=== PATIENT | female | born 2000 | race Hispanic/Latino ===

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

== ENCOUNTER 2022-01-04 08:59 | Emergency (ER) | payer OTHER ==
[2022-01-04] MEDS ORDERED: Ketorolac Tromethamine 30 MG/ML VIAL ONE (10:51)
[2022-01-04] MEDS ORDERED: Acetaminophen 500 MG TAB ONE (10:51)
== END 2022-01-04 11:35 | disposition home or self-care (01) ==
LOC: CSHERS 08:59
DX: J06.9 Acute upper respiratory infection, unspecified (principal)
CPT/HCPCS: 96372; 99283; J1885

== ENCOUNTER 2022-07-18 18:54 | Emergency (ER) | payer OTHER | END 2022-07-18 19:53 | disposition home or self-care (01) | LOC: CSHERS 18:54 | DX: J02.9 Acute pharyngitis, unspecified (principal) | CPT/HCPCS: 99282 ==

== ENCOUNTER 2022-09-02 11:01 | Inpatient (IN) | payer OTHER ==
[2022-09-02] MEDS ORDERED: NS w/ Oxytocin 30 units 500 ML ONE (11:19)
[2022-09-02] MEDS ORDERED: Misoprostol 200 MCG TAB PR PRN (11:20)
[2022-09-02] MEDS ORDERED: Tranexamic Acid 1,000 MG/10 ML VIAL IVP PRN (11:20)
[2022-09-02] MEDS ORDERED: Carboprost 250 MCG/ML AMP IM PRN (11:20)
[2022-09-02] MEDS ORDERED: Ondansetron PF 4 MG/2 ML Vial IVP PRN ×2 (11:20→17:02)
[2022-09-02] MEDS ORDERED: Ibuprofen 800 MG TAB PO PRN (11:20)
[2022-09-02] MEDS ORDERED: Methylergonovine 0.2 MG/ML VIAL IM PRN ×2 (11:20→17:02)
[2022-09-02] MEDS ORDERED: hydrALAZINE 20 MG/ML VIAL SLOW IVP PRN ×2 (11:20→17:02)
[2022-09-02] MEDS ORDERED: Lidocaine 1% (PF) 30 ML VIAL SC PRN (11:20)
[2022-09-02] MEDS ORDERED: Promethazine HCl 25 MG/ML VIAL IM PRN ×2 (11:20→17:02)
[2022-09-02] MEDS ORDERED: Diphenoxylate HCl/Atropine Tablet PO PRN (11:20)
[2022-09-02] MEDS ORDERED: Lactated Ringer's 1,000 ML IV SCH (11:30)
[2022-09-02] MEDS ORDERED: NS w/ Oxytocin 30 units 500 ML IV SCH ×2 (11:30→17:02)
[2022-09-02 11:50] VITALS: BMI 28.3
[2022-09-02 13:07] LABS: Hemoglobin 8.4 g/dL (12.0-15.5); Mean Corpuscular HGB CONC 33.2 g/dL (32.0-36.0); Mean Corpuscular Hemoglobin 27.8 pg (27.0-33.0); Mean Corpuscular Volume 83.8 fl (81.6-98.3); Mean Platelet Volume 10.2 fl (7.4-10.4); Platelet Count 283 10x3/uL (150-450); RBC Distribution Width 14.2 % (11.5-14.5); Red Blood Cell (RBC) Count 3.02 10x6/uL (3.90-5.03)
[2022-09-02 13:47] LABS: HBSAg Index 0.17 S/CO (0-0.99); HIV (1/2) Antibody/Antigen Non-Reactive (NonReactive); HIV 1/2 INDEX 0.12 S/CO (<1.00); Hep B Surf Ag - L&D Non-Reactive S/CO (NonReactive)
[2022-09-02 13:49] LABS: Syphilis Antibody Nonreactive (Nonreactive); Syphilis Antibody Index 0.05 S/CO (<1.00 Non-Reactive)
[2022-09-02 14:38] LABS: Amphetamine Not Detected (NotDetected); Barbiturates Screen Not Detected (NotDetected); Benzodiazepine Screen Not Detected (NotDetected); Cocaine Metabolite Screen Not Detected (NotDetected); Methadone Not Detected (NotDetected); Methamphetamine Not Detected (NotDetected); Opiate Screen Not Detected (NotDetected); Oxycodone Screen Not Detected (NotDetected); Phencyclidine (PCP) Not Detected (NotDetected); THC/Cannabinoid Screen Not Detected (NotDetected); Tricyclic Screen Not Detected (NotDetected)
[2022-09-02] MEDS ORDERED: Bisacodyl 10 MG SUPP PR PRN (17:02)
[2022-09-02] MEDS ORDERED: Milk Of Magnesia 30 ML UDCUP PO PRN (17:02)
[2022-09-02] MEDS ORDERED: Misoprostol 200 MCG TAB VAG PRN (17:02)
[2022-09-02] MEDS ORDERED: Benzocaine-Menthol 82.5 ML CAN TOP PRN (17:02)
[2022-09-02] MEDS ORDERED: Lanolin Ointment 7 GM TUBE TOP PRN (17:02)
[2022-09-02] MEDS ORDERED: Boostrix 0.5 ML (Tdap) VIAL (>/=7 yrs of age) IM ONE (17:02)
[2022-09-02] MEDS ORDERED: diphenhydrAMINE 25 MG CAP PO PRN (17:02)
[2022-09-02 17:35] LABS: HBSAB Concentration Less than 8.00 mIU/mL; Hep B Surf AB Non-Reactive (NonReactive); Hep C IgG Ab Non-Reactive S/CO (NonReactive); Hep C Index 0.07 S/CO (0-0.79)
[2022-09-02 18:38] LABS: D-Dimer Test 2.25 mg/L FEU (0.19-0.50); PTT 26.5 sec (22.0-33.0); Prothrombin Time 10.3 sec (9.5-12.1)
[2022-09-02 19:07] LABS: Hemoglobin 6.8 g/dL (12.0-15.5)
[2022-09-02] MEDS: Ibuprofen 800 MG TAB PO SCH (21:07)
[2022-09-02] MEDS: Ferrous Sulfate 325 MG TAB PO SCH (21:07)
[2022-09-02] MEDS: Docusate 100 MG CAP PO SCH (21:07)
[2022-09-03 04:04] LABS: Hemoglobin 6.7 g/dL (12.0-15.5)
[2022-09-03] MEDS: Ibuprofen 800 MG TAB PO SCH ×4 (05:49→21:42)
[2022-09-03] MEDS: Docusate 100 MG CAP PO SCH ×2 (09:00→21:43)
[2022-09-03] MEDS: Ferrous Sulfate 325 MG TAB PO SCH ×2 (09:00→18:11)
[2022-09-03] MEDS: Prenatal Vitamin 1 TAB PO SCH (09:01)
[2022-09-03 12:00] LABS: Hemoglobin 7.1 g/dL (12.0-15.5); Mean Corpuscular Hemoglobin 27.7 pg (27.0-33.0); Mean Corpuscular Volume 81.6 fl (81.6-98.3); Mean Platelet Volume 9.8 fl (7.4-10.4); Platelet Count 236 10x3/uL (150-450); RBC Distribution Width 14.3 % (11.5-14.5); Red Blood Cell (RBC) Count 2.56 10x6/uL (3.90-5.03); White Blood Cell (WBC) Count 9.3 10x3/uL (3.5-10.5)
[2022-09-03] MEDS ORDERED: Measles/Mumps/Rubella 10 MCG/0.5 ML VIAL SC ONE (13:09)
[2022-09-04 03:20] LABS: Hemoglobin 6.8 g/dL (12.0-15.5); Mean Corpuscular HGB CONC 33.2 g/dL (32.0-36.0); Mean Corpuscular Hemoglobin 27.6 pg (27.0-33.0); Mean Corpuscular Volume 83.3 fl (81.6-98.3); Mean Platelet Volume 10.1 fl (7.4-10.4); Platelet Count 207 10x3/uL (150-450); RBC Distribution Width 14.7 % (11.5-14.5); Red Blood Cell (RBC) Count 2.46 10x6/uL (3.90-5.03); White Blood Cell (WBC) Count 9.1 10x3/uL (3.5-10.5)
[2022-09-04] MEDS: Ibuprofen 800 MG TAB PO SCH ×2 (08:22→15:00)
[2022-09-04] MEDS: Prenatal Vitamin 1 TAB PO SCH (09:50)
[2022-09-04] MEDS: Docusate 100 MG CAP PO SCH (09:50)
[2022-09-04] MEDS: Ferrous Sulfate 325 MG TAB PO SCH (09:50)
[2022-09-04 11:09] VITALS: BP 113/62; TEMP 98.1
[2022-09-04 15:16] LABS: Hemoglobin 9.2 g/dL (12.0-15.5); Mean Corpuscular HGB CONC 33.2 g/dL (32.0-36.0); Mean Corpuscular Hemoglobin 27.2 pg (27.0-33.0); Mean Platelet Volume 10.8 fl (7.4-10.4); Platelet Count 239 10x3/uL (150-450); RBC Distribution Width 15.4 % (11.5-14.5); Red Blood Cell (RBC) Count 3.38 10x6/uL (3.90-5.03); White Blood Cell (WBC) Count 11.1 10x3/uL (3.5-10.5)
== END 2022-09-04 16:40 | disposition home or self-care (01) | DRG 769 ==
LOC: CSHLD 11:01 → CSHPP 16:50
PROVIDERS: ADMIT Obstetrics & Gynecology; ATTEND Obstetrics & Gynecology
PROC: 10D17Z9 Manual Extraction of Products of Conception, Retained, Via Natural or Artificial Opening (ICD-10-PCS; principal; 2022-09-02)
PROC: 30233N1 Transfusion of Nonautologous Red Blood Cells into Peripheral Vein, Percutaneous Approach (ICD-10-PCS; 2022-09-02)
DX: O72.2 Delayed and secondary postpartum hemorrhage (principal); D50.0 Iron deficiency anemia secondary to blood loss (chronic); O90.81 Anemia of the puerperium
CPT/HCPCS: 36415; 36430; 80306; 85014; 85018; 85027; 85049; 85300; 85362; 85379; 85384; 85610; 85730; 86706; 86762; 86780; 86803; 86850; 86900; 86901; 87340; 87389; 88307; J2405; P9016

== ENCOUNTER 2023-05-25 00:59 | Emergency (ER) | payer OTHER, SELFPAY ==
[2023-05-25] MEDS ORDERED: Ondansetron PF 4 MG/2 ML Vial ONE (01:32)
[2023-05-25] MEDS ORDERED: Ketorolac Tromethamine 30 MG (1 mL) VIAL ONE (01:32)
[2023-05-25 01:39] LABS: #Basophils 0.1 10x3/uL (0.0-0.2); #Eosinphils 0.3 10x3/uL (0.0-0.5); #Monocytes 0.7 10x3/uL (0.0-1.1); #Neutrophils 5.9 10x3/uL (1.5-8.4); %Basophils 0.8 % (0.0-2.0); %Eosinophils 2.8 % (0.0-6.0); %Lymphocytes 30.9 % (18.0-47.0); %Monocytes 6.5 % (0.0-10.0); %Neutrophils 58.6 % (40.0-75.0); Hematocrit 37.9 % (34.9-44.5); Mean Corpuscular HGB CONC 34.3 g/dL (32.0-36.0); Mean Corpuscular Hemoglobin 26.9 pg (27.0-33.0); Mean Corpuscular Volume 78.3 fl (81.6-98.3); Mean Platelet Volume 9.5 fl (7.4-10.4); Platelet Count 351 10x3/uL (150-450); RBC Distribution Width 14.8 % (11.5-14.5); Red Blood Cell (RBC) Count 4.84 10x6/uL (3.90-5.03); White Blood Cell (WBC) Count 10.1 10x3/uL (3.5-10.5)
[2023-05-25 01:47] LABS: BHCG - Serum Negative (NEGATIVE); Bilirubin Neg (Negative); Blood, Urine 250 (Negative); Clarity Slightly Cloudy (Clear); Glucose, Urine (Dipstick) Normal (Negative); Ketone, Urine Negative (Negative); Leukocyte 25 (Negative); Nitrite Negative (Negative); Pregs Control Background? CLEAR/WHITE (CLR/WHITE); Pregs Control Bar Appear? YES (CONTROL BAR); Protein, Urine (Dipstick) 30 mg/dl (Neg-Trace); Specific Gravity, Urine 1.025 (1.005-1.030); Urobilinogen Normal mg/dL (Less than 2)
[2023-05-25 01:52] LABS: ALT (SGPT) 14 U/L (8-55); AST (SGOT) 15 U/L (5-34); Albumin 4.5 g/dL (3.5-5.0); Alkaline Phosphatase 68 U/L (40-100); Anion Gap 13 mmol/L (10-20); BUN (Urea Nitrogen) 11 mg/dL (7.0-18.7); Bilirubin, Total 0.3 mg/dL (0.2-1.2); Calc. Creatinine Clearance 0 mL/min (70-130); Calcium 9.1 mg/dL (7.8-10.44); Carbon Dioxide 24 mmol/L (22-29); Chloride 106 mmol/L (98-107); Estimated GFR 117; Glucose 125 mg/dL (70-105); Lipase 30 U/L (8-78); Potassium 3.7 mmol/L (3.5-5.1); Protein, Total 7.5 g/dL (6.0-8.3); Sodium 139 mmol/L (136-145)
[2023-05-25 01:55] LABS: CAUTI Indications for Culture Pelvic or flank pain; RBC/HPF 21-50 HPF (0-3); WBC/HPF 0-3 HPF (0-3)
[2023-05-25 01:56] LABS: Bacteria/HPF None Seen HPF (None Seen)
[2023-05-25 01:57] LABS: Urine Culture Reflex No No
== END 2023-05-25 04:30 | disposition home or self-care (01) ==
LOC: CSHERS 00:59
DX: K80.51 Calculus of bile duct without cholangitis or cholecystitis with obstruction (principal); R31.9 Hematuria, unspecified
CPT/HCPCS: 74018; 76705; 80053; 81001; 83690; 84703; 85025; 96374; 96375; J1885; J2405

== ENCOUNTER 2025-01-30 10:24 | Emergency (ER) | payer SELFPAY ==
[2025-01-30] MEDS ORDERED: Ketorolac Tromethamine 30 MG (1 mL) VIAL ONE (10:53)
[2025-01-30] MEDS ORDERED: cefTRIAXone (ROCEPHIN) 2 GM VIAL ONE (10:53)
[2025-01-30 11:09] LABS: #Basophils 0.04 10x3/uL (0.0-0.2); #Eosinophils 0.19 10x3/uL (0.0-0.5); #Monocytes 0.52 10x3/uL (0.0-1.1); #Neutrophils 6.93 10x3/uL (1.5-8.4); %Basophils 0.4 % (0.0-2.0); %Eosinophils 1.9 % (0.0-6.0); %Lymphocytes 22.4 % (18.0-47.0); %Monocytes 5.2 % (0.0-10.0); %Neutrophils 69.7 % (40.0-75.0); Hematocrit 40.6 % (34.9-44.5); Hemoglobin 14.0 g/dL (12.0-15.5); Mean Corpuscular Hemoglobin 28.9 pg (27.0-33.0); Mean Corpuscular Volume 83.7 fL (81.6-98.3); Platelet Count 374 10x3/uL (150-450); Red Blood Cell (RBC) Count 4.85 10x6/uL (3.90-5.03); White Blood Cell (WBC) Count 9.95 10x3/uL (3.5-10.5)
[2025-01-30 11:31] LABS: BHCG - Serum Negative (NEGATIVE); Pregs Control Background? CLEAR/WHITE (CLR/WHITE); Pregs Control Bar Appear? YES (CONTROL BAR)
[2025-01-30 11:35] LABS: ALT (SGPT) 13 U/L (Less than 34); AST (SGOT) 19 U/L (11-34); Albumin 4.6 g/dL (3.1-4.5); Alkaline Phosphatase 74 U/L (40-110); Anion Gap 15 mmol/L (10-20); BUN (Urea Nitrogen) 11 mg/dL (7.0-18.7); Bilirubin, Total 0.8 mg/dL (0.3-1.2); Calc. Creatinine Clearance 0 mL/min (70-130); Calcium 9.2 mg/dL (7.8-10.44); Carbon Dioxide 21 mmol/L (22-29); Chloride 106 mmol/L (98-107); Globulin 3.3 g/dL (2.4-3.5); Glucose 95 mg/dL (70-105); Potassium 3.8 mmol/L (3.5-5.1); Sodium 138 mmol/L (136-145)
[2025-01-30] MEDS ORDERED: Dexamethasone 10 MG/ML VIAL ONE (11:36)
== END 2025-01-30 11:45 | disposition home or self-care (01) ==
LOC: CSHERS 10:24
DX: J18.0 Bronchopneumonia, unspecified organism (principal); B34.9 Viral infection, unspecified
CPT/HCPCS: 36415; 70360; 71045; 80053; 83605; 84703; 85025; 87040; 87426; 93005; 96374; 96375; J0696; J1100; J1885